=== PATIENT | male | born 1950 | race Caucasian/White ===

== ENCOUNTER → 2020-10-22 | Outpatient (CLI) | payer OTHER ==
[~2020-10-22] MED LIST: CARDIZEM CD 18180 M3 PO; FLECAINIDE ACET50 M1 PO; HYDROCHLOROTHIA25 M1 PO; KLOR-CON 1010 MEQ PO; LOPID600 MG PO; MULTAQ400 MG PO; PERCOCET 10-321 EACH PO; PERCOCET PO; POTASSIUM CHLOR8 MEQ PO; PROTONIX40 M1 PO; PROTONIX40 M2 PO; XARELTO20 MG PO; ZYLOPRIM300 MG PO
== END ==
LOC: LAB 08:24
PROVIDERS: Student in an Organized Health Care Education/Training Program; ATTEND Orthopaedic Surgery Sports Medicine
DX: Z01.812 Encounter for preprocedural laboratory examination (principal); Z20.822 Contact with and (suspected) exposure to COVID-19

== ENCOUNTER 2020-10-24 08:32 | Inpatient (IN) | payer OTHER ==
[2020-10-24] VITALS (8 sets, daily range): BP systolic 149–160; BP diastolic 84–97
[~2020-10-24] VITALS: Ht 188 cm; Wt 129.3 kg
--- NOTE | 2020-10-24 14:09 | NUR ---
ASSUMED PT CARE THIS AM. PT IS ALERT & ORIENTED X4. PT HAS IV SITE ON R HAND. PT HAD L ANKLE SURGERY TODAY. PT DENIES PAIN, NAUSEA AND VOMITING. PT AT THE BEDSIDE. PT IS THE DPOA. PT ON THE BED, BED ON THE LOWEST POSITION, SIDE RAILS UP, CALL LIGHT WITHIN REACH. WILL CONTINUE TO MONITOR PT. FOLLOW POC.
--- NOTE | 2020-10-24 14:53 | EKG ---
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 Machine: kristi : 1950 Requested By: Harpreet Levy Order Number: [id number] MD: Escobar Trimble Measurements Intervals [place] Rate: 70 P: -32 ID: [id number] QRS: -6 QRSD: 125 T: 20 QT: 445 QTc: 481 Interpretive Statements Sinus rhythm Nonspecific intraventricular conduction delay Inferior infarct, old Baseline wander in lead(s) III,aVL,V2,V6 Compared to ECG 01/01/2015 06:55:00 Electronically Signed On 10-24-2020 14:53:11 CDT by Escobar Trimble [email or web address] <ELECTRONICALLY SIGNED> By: Escobar Trimble MD 10/24/20 1453 9 9 Escobar Trimble MD /EPI
[2020-10-24 16:48] LABS: HEMATOCRIT 42.1 % (42.0-52.0); HEMOGLOBIN 14.5 gm/dL (14.0-18.0); MCH 38.8 pg (26.0-34.0); MCHC 34.5 g/dL (28.0-37.0); MCV 112.5 fL (80.0-100.0); RBC 3.75 mil/uL (4.50-6.00); RDW 19.8 % (10.5-14.5); WBC 9.6 thou/uL (4.0-11.0)
[2020-10-24 17:04] LABS: CALCIUM 8.9 mg/dL (8.5-10.1); CREATININE 0.9 mg/dL (0.7-1.3); POTASSIUM 4.4 mmol/L (3.5-5.1)
[2020-10-25 00:25] VITALS: BP 155/87
--- NOTE | 2020-10-25 01:55 | NUR ---
ASSUMED CARE OF PT AT 1900. PT IS A/O X4 AND IS NON-WT BEARING TO LEFT LE. HAS NOT GOTTEN UP THIS SHIFT BUT IS ABLE TO STAND AND PIVOT TO BSC WITH RIGHT LE. CURRENTLY ON 2 LITERS 02 NC. DESATS VERY QUICKLY IF NC BECOMES DISPLACED. CONTINOUS PULSE OX IN PLACE AND NEW FINGER PROBE STICKER APPLIED THIS SHIFT. USES A URINAL AT THE BEDSIDE. DARK YELLOW/ORANGE URINE NOTED. NO BM THIS SHIFT. CAST TO LEFT ANKLE IS C/D/I. PT C/O ACHING PAIN. PRN PAIN MEDICATION GIVEN DIRECTED. FALL PRECAUTIONS IN PLACE, CALL LIGHT IS WITHIN REACH. WILL CONTINUE TO MONITOR.
[2020-10-25 03:00] VITALS: BP 170/89
[2020-10-25 05:43] LABS: HEMATOCRIT 39.6 % (42.0-52.0); HEMOGLOBIN 13.6 gm/dL (14.0-18.0)
[2020-10-25 06:00] LABS: POTASSIUM 3.9 mmol/L (3.5-5.1)
[2020-10-25 07:58] VITALS: BP 152/84
--- NOTE | 2020-10-25 10:35 | NUR ---
Assumed care of pt at 0700. Pt a&ox4. Denies pain this am. Cast in place. Capillary refill less than 3 seconds. On 2L O2. NWB LLE. Call light within reach. Will continue to monitor.
[2020-10-25 17:29] VITALS: BP 145/82
[2020-10-25 19:56] VITALS: BP 158/92
--- NOTE | 2020-10-26 04:34 | NUR ---
Assumed patients care at 2200. Patient was very pleasant and had no complaints of pain. Previous nurse already gave patient pain medication with relief. Patient uses urinal. No issues throughout the night. Will continue to monitor.
[2020-10-26 06:07] LABS: ABSOLUTE NEUTROPHILS 3.7 thou/uL (1.4-8.2); EOSINOPHILS 1.3 % (0.0-3.0); HEMATOCRIT 40.5 % (42.0-52.0); HEMOGLOBIN 13.7 gm/dL (14.0-18.0); LYMPHOCYTES 19.6 % (24.0-44.0); MCH 37.9 pg (26.0-34.0); MCHC 33.8 g/dL (28.0-37.0); MCV 112.3 fL (80.0-100.0); MONOCYTES 14.4 % (1.0-8.0); PLATELET COUNT 283 thou/uL (150-400); POLYS 63.7 % (36.0-66.0); RDW 19.6 % (10.5-14.5); WBC 5.8 thou/uL (4.0-11.0)
[2020-10-26 06:19] LABS: CALCIUM 8.9 mg/dL (8.5-10.1); CREATININE 0.7 mg/dL (0.7-1.3); MAGNESIUM 1.6 mg/dL (1.8-2.4); PHOSPHORUS 4.5 mg/dL (2.6-4.7); POTASSIUM 3.2 mmol/L (3.5-5.1)
[2020-10-26 07:40] VITALS: BP 142/71
--- NOTE | 2020-10-26 11:25 | NUR ---
Assumed pt care at 7am.Pt in bed resting without c/o.Assessment completed.vss. Pt tolerated meds and diet.Dr Fonseca and Stewart here,order noted.Pt will be dc home in am with home health nsg and therapy.Pt at visiting.Will continue to monitor.
[2020-10-26 16:30] VITALS: BP 141/86
[2020-10-26 19:55] VITALS: BP 147/77
--- NOTE | 2020-10-27 02:15 | NUR ---
PT AOX4. PT REPORTS 3/10 PAIN IN LEFT ANKLE. PT RECEIVING PRN PO NORCO Q4HR WITH PRN IV MORPHINE Q2HR AVAILABLE. PT DENIES SOB WHILE ON ROOM AIR. PT TOLERATING PO INTAKE OF FLUIDS AND REGULAR DIET WITHOUT ISSUE. PT WITHOUT NAUSEA OR EMESIS. PT NON-WEIGHTBEARING TO LLE. PT DENIES NUMBNESS AND TINGLING, SENSATION INTACT AND CAPILLARY REFILL LESS THAN 3SEC IN ALL EXTREMITIES. PT RESTING IN BED THROUGHOUT SHIFT, FREQUENT REPOSITIONING ENCOURAGED, PT NOTED TO SHIFT INDEPENDENTLY WHILE IN BED. PT VOIDING PER URINAL. PT ENCOURAGED TO NOTIFY STAFF FOR ALL NEEDS, CALL LIGHT WITHIN REACH, BED ALARM ON, BED LOCKED IN LOWEST POSITION, FREQUENT MONITORING WILL CONTINUE.
[2020-10-27 02:40] VITALS: BP 145/84
[2020-10-27 07:50] VITALS: BP 142/84
[2020-10-27 10:09] VITALS: BP 142/84
--- NOTE | 2020-10-27 10:18 | NUR ---
ASSUMED PT CARE THIS AM. PT VSS, A&OX4. TOOK MEDS WELL WITHOUT ISSUE THIS AM. REPORTS PAIN OF 2/10, DENIES NEEDING ANY PAIN MEDICATION AT THIS TIME. REPORTING NO NUMBNESS OR TINGLING. PATIENT ABLE TO REPOSIITON SELF IN BED. HYDRATION ENCOURAGED. PATIENT DISCHARGED TO HOME. IV REMOVED. REPORTS UNDERSTANDING OF TEACHING.
[2020-10-27 10:58] VITALS: BP 142/84
--- NOTE | 2020-10-27 11:00 | NUR ---
cm completed the initial assessment to discuss d/c plan. pt lives home w/ who was present at bedside. pt started using w/c a week ago after ankle injury, pt has commode, shower bench and walk-in shower and ramp. pt is independent w/care. pt wants [facility], where his dtr works. [facility] spk with [facility] and they are accepting of pt. [phone] - phone and [phone] - fax.
--- NOTE | 2020-10-29 11:38 | O ---
[facility] [place] [address] OPERATIVE REPORT Name: TALI PRICE Room #: 441-P [facility] IN M.R.#: [id number] Admission: 10/24/20 Attend Phys: Johanne Johnson MD Discharge: 10/27/20 Date of : 52 Report #: [id number] THIS REPORT FOR: cc: FAM - Family physician unknown FAM - Family physician unknown Harpreet Levy MD ~ DATE OF SERVICE: 10/24/2020 PREOPERATIVE DIAGNOSIS: Left ankle distal fibular fracture. POSTOPERATIVE DIAGNOSIS: Left ankle distal fibular fracture. PROCEDURE: Left ankle open reduction and internal fixation distal fibula with placement of intramedullary nail. SURGEON: Dr. Harpreet Levy. DIESEL POWER MECHANIC: Karla Peralta. ANESTHESIA: General. ESTIMATED BLOOD LOSS: Minimal. DRAINS: No drains. TOURNIQUET TIME: 45 minutes. DESCRIPTION OF PROCEDURE: The patient brought to the operating room where he was placed under general anesthesia. Once under adequate general anesthesia, his left lower extremity was prepped and draped in sterile manner. The extremity was elevated, exsanguinated, tourniquet placed 300 mmHg. Utilizing fluoroscopy for guidance, a guidewire for the Arthrex intramedullary nail was then placed through the distal fibula. The entrance reamer was then placed and subsequently the long guidewire was placed and the more proximal reamer was then utilized as well. A 3 mm short nail was then placed down the shaft of the fibula. The proximal nail was then expanded utilizing the mechanism within the nail. Fixation then distally was achieved as well with two 3.0 cancellous screws placed under fluoroscopic guidance utilizing the jig on the intramedullary nail through 2 small stab incisions. Excellent fixation was achieved in this manner. Through 2 more proximal incisions the 2 syndesmosis did appear to be unstable; therefore, 2 TightRope implants were placed through the jig and through another separate incision there proximally. These were then drilled for and then placed, activated and then tightened. Excellent fixation and alignment was achieved as verified under fluoroscopy. The wounds were irrigated copiously and closed with 2-0 Vicryl in subcutaneous tissues and [address] [address] OPERATIVE REPORT Name: TALI PRICE Room #: 441-P [facility] IN .R.#: [id number] Admission: 10/24/20 Attend Phys: Johanne Johnson MD Discharge: 10/27/20 Date of : 52 Report #: [id number] fredy were used for the skin. The wounds were dressed with Xeroform, 4 x 4s, and a sterile soft compressive dressing with a short leg cast was placed. Tourniquet was let down at 45 minutes. Toes were pink and warm with good capillary refill. There were no complications from the procedure. The patient tolerated the procedure well and went to the recovery room without incident. <ELECTRONICALLY SIGNED> By: Harpreet Levy MD 10/29/20 1138 1143 1216 Harpreet Levy MD /nt
== END 2020-10-27 10:50 | disposition home health service (06) | DRG 494 ==
LOC: OR 08:32 → TBA 08:36 → OR 09:34 → 4S 13:19
PROVIDERS: Internal Medicine; Orthopaedic Surgery Foot and Ankle Surgery; ADMIT Hospitalist; ATTEND Hospitalist
PROC: 0QSK06Z Reposition Left Fibula with Intramedullary Internal Fixation Device, Open Approach (ICD-10-PCS; principal; 2020-10-24)
DX: S82.832A Other fracture of upper and lower end of left fibula, initial encounter for closed fracture (principal); G47.33 Obstructive sleep apnea (adult) (pediatric); I48.91 Unspecified atrial fibrillation; I10 Essential (primary) hypertension; F17.210 Nicotine dependence, cigarettes, uncomplicated; D17.0 Benign lipomatous neoplasm of skin and subcutaneous tissue of head, face and neck; J44.9 Chronic obstructive pulmonary disease, unspecified; E66.9 Obesity, unspecified; W18.39XA Other fall on same level, initial encounter; Z68.37 Body mass index [BMI] 37.0-37.9, adult; Z79.899 Other long term (current) drug therapy; Z91.041 Radiographic dye allergy status; Z88.8 Allergy status to other drugs, medicaments and biological substances; Y93.89 Activity, other specified; Y92.89 Other specified places as the place of occurrence of the external cause; Y99.8 Other external cause status
CPT/HCPCS: 10102; 50010; 50101; 50386; 51412; 56524; 56525; 57091; 57180; 57806; 57809; 58159; 58706; 62110; 62900; 70005